=== PATIENT | female | born 1975 | race Caucasian/White ===

== ENCOUNTER 2016-06-16 12:26 | Emergency (ER) | payer MEDICAID, OTHER ==
[~2016-06-16] VITALS: Ht 157.5 cm; Wt 78.9 kg
[~2016-06-16 12:26] MED LIST: FER325 PO; FLUC150T17 PO; MICO1KIT VG; PROG200C6 PO
[2016-06-16 12:35] VITALS: Ht 157.5 cm; Wt 78.9 kg
[2016-06-16] MEDS ORDERED: KETOROLAC 30 MG INJ IV STA (13:47)
[2016-06-16 14:05] LABS: ADD UMIC YES; URINE BILIRUBIN (Dip) NEGATIVE (NEGATIVE); URINE BLOOD (Dip) 1+ (NEGATIVE); URINE COLOR LT. YELLOW (YELLOW); URINE GLUCOSE (Dip) >=1000 % (NEGATIVE); URINE KETONES (Dip) NEGATIVE (NEGATIVE); URINE LEUKOCYTE ESTERASE (Dip) NEGATIVE (NEGATIVE); URINE NITRITE (Dip) NEGATIVE (NEGATIVE); URINE TOTAL PROTEIN (Dip) NEGATIVE (NEGATIVE); URINE UROBILINOGEN (Dip) 0.2 E.U./dL (0.1-1.0)
[2016-06-16 14:16] LABS: ADD SCAN DIFF NO
[2016-06-16 14:19] LABS: ABNORMAL IP MESSAGE 1; BASOPHILS % 0.3 % (0.0-2.0); HEMATOCRIT 41.8 % (37.0-47.0); HEMOGLOBIN 14.3 g/dl (12.0-16.0); LYMPHOCYTES # 0.7 10^3/ul (0.8-2.9); LYMPHOCYTES % 19.9 % (15.0-51.0); MEAN CORPUSCULAR HGB CONC 34.2 g/dl (32.0-37.0); MEAN CORPUSCULAR VOLUME 73.2 fl (82.0-101.0); MONOCYTE # 0.2 10^3/ul (0.3-0.9); MONOCYTES % 6.5 % (0.0-11.0); NEUTROPHIL # 2.5 10^3/ul (1.6-7.5); NEUTROPHILS % 72.7 % (39.0-77.0); RED BLOOD COUNT 5.71 10^6/ul (4.20-5.40); RED CELL DISTRIBUTION WIDTH 12.9 % (11.5-14.5); WHITE BLOOD COUNT 3.4 10^3/ul (4.8-10.8)
[2016-06-16 14:25] LABS: PLATELET COUNT 80 10^3/UL (140-415)
[2016-06-16 14:26] LABS: MEAN PLATELET VOLUME 11.2 fl (7.4-10.4)
[2016-06-16 14:32] LABS: BACTERIA,URINE MODERATE; SQUAMOUS EPITHELIAL CELL,UR MODERATE
[2016-06-16 14:33] LABS: ALBUMIN 3.7 g/dl (3.3-4.9)
[2016-06-16 14:34] LABS: POTASSIUM 3.9 mmol/L (3.5-5.1)
[2016-06-16 14:36] LABS: BILIRUBIN,INDIRECT 0.3 mg/dl (0-1.1); BILIRUBIN,TOTAL 0.3 mg/dl (0.2-1.3); CREATININE 0.4 mg/dl (0.44-1.00)
[2016-06-16 14:37] LABS: ALBUMIN/GLOBULIN RATIO 1.08; CALCIUM 9.1 mg/dl (8.4-10.2); TOTAL PROTEIN 7.1 g/dl (6.1-8.1)
--- NOTE | 2016-06-16 14:44 | RADRPT ---
PROCEDURE: US Abdomen. CLINICAL INDICATION: Abdominal Pain TECHNIQUE: Multiple real-time images were acquired of the patient's abdomen utilizing a high resol ution transducer. COMPARISON: None FINDINGS: The liver demonstrates increased echogenicity. The liver is increased in size. The liver measures 22 .8 cm in length. There are no focal solid lesions seen. There is no intrahepatic biliary duct dilata tion. The portal vein is patent with normal direction of flow. No gallstones are identified within the gallbladder. There is a 5 mm gallbladder polyp. There is no pericholecystic fluid or gallbladder wall thickening. The common bile duct measures 3.6 mm in maximal dimension. The visualized portions of the pancreas are unremarkable. Right kidney is unremarkable measures 13.1 cm. No free fluid is identified. RPTAT: AA IMPRESSION: Mild fatty infiltration of the liver with mild hepatomegaly. No evidence of cholelithiasis or biliary ductal dilatation. 5 mm gallbladder polyp. .Magaly Ortiz MD, Date Time Electronically viewed and signed by .Magaly Ortiz MD, on 06/16/2016 14:44 .M/
--- NOTE | 2016-06-16 15:15 | RADRPT ---
PROCEDURE: US Pelvis CLINICAL INDICATION: Abdominal pain TECHNIQUE: Transabdominal and transvaginal sonographic evaluation of the pelvis was performed. COMPARISON: None. FINDINGS: Status post hysterectomy. The right ovary is not visualized. Normal flow to left ovary. No adnexal mass. Mild to moderate amount of free pelvic fluid is demonstrated. MEASUREMENTS: Left ovary size: 3.0 x 1.9 x 2.6 cm IMPRESSION: Status post hysterectomy. Right ovary not seen. Mild to moderate amount of pelvic ascites seen. RPTAT:PP .Lopez Yarbrough MD, MD Date Time Electronically viewed and signed by .Lopez Yarbrough MD, on 06/16/2016 15:14 .V/
[2016-06-16] MEDS ORDERED: IBUP-1542 PO (15:23)
[2016-06-16] MEDS ORDERED: ONDA4TAB14 PO (15:49)
[2016-06-16 16:00] VITALS: BP 132/82; PULSE 83; RESP 18; TEMP 97.9
--- NOTE | 2016-06-16 16:28 | ERD ---
ER Documentation Chief Complaint Date/Time DATE: 06/16/16 TIME: 16:16 Chief Complaint PELVIC PAIN X 2 DAYS HPI 40-year-old female complaining of fever, body aches, and pelvic pain 2 days. Patient also reports headache and neck pain. T-max at home 101. She took ibuprofen, last dose was 8 hours ago. Patient reports nausea, but denies vomiting or diarrhea. Denies cough or runny nose. Denies dysuria. Patient denies any past medical history, surgical history includes hysterectomy and bilateral breast implants. ROS All systems reviewed and are negative except as per history of present illness. Medications Home Meds Active Scripts Ondansetron (Ondansetron Odt) 4 Mg Tab.rapdis, 4 MG PO Q6H Y for NAUSEA AND/OR VOMITING, #10 TAB Prov:JULITO CHAPMAN FREIGHT ADJUSTER 06/16/16 Ibuprofen* (Motrin*) 600 Mg Tab, 600 MG PO Q6H Y for PAIN AND OR ELEVATED TEMP, #30 TAB Prov:JULITO CHAPMAN FREIGHT ADJUSTER 06/16/16 Miconazole/Skin Cleanser No.17 (Monistat 3 Combo Pack) 1 Each Kit, 1 EACH VG QHS for 3 Days, KIT Prov:TELMA HOROWITZ C 11/02/14 Fluconazole* (Diflucan*) 150 Mg Tablet, 150 MG PO ONCE, #1 TAB Prov:TELMA HOROWITZ C 11/02/14 Progesterone,Micronized* (Progesterone*) 200 Mg Capsule, 400 MG PO HS, #30 CAP Prov:ALONDRA DONG MD 03/17/14 Ferrous Sulfate* (Ferrous Sulfate*) 325 Mg Tabec, 325 MG PO TID, #90 TAB 3 Refills Prov:ALONDRA DONG MD 03/17/14 Allergies Allergies: Coded Allergies: No Known Allergies (Verified Allergy, Unknown, 06/03/14) PMhx/Soc History of Surgery: No Anesthesia Reaction: No Hx Neurological Disorder: No Hx Respiratory Disorders: No Hx Cardiac Disorders: No Hx Psychiatric Problems: No Hx Miscellaneous Medical Probl: No Hx Alcohol Use: No Hx Substance Use: No Hx Tobacco Use: No Smoking Status: Never smoker Physical Exam Vitals Vital Signs Date Time Temp Pulse Resp B/P Pulse Ox O2 Delivery O2 Flow Rate FiO2 06/16/16 16:00 97.9 83 18 132/82 98 Room Air 06/16/16 12:35 98.1 99 18 136/89 99 Physical Exam General: Well-developed, well-nourished, conscious and coherent, in no distress Skin: Warm and dry without rash, good texture and turgor Head: Normocephalic without evidence of trauma Eyes: Sclera and conjunctivae normal, nonicteric; pupils equal, round, and reactive to light; extraocular movements are intact Neck: Supple without meningismus or adenopathy. Carotids are equal. Trachea midline. No bruits or JVD Chest: Normal AP diameter. Good expansion without retractions. Nontender. Lungs are clear to auscultate bilaterally with good tidal volume Heart: Regular rate and rhythm. No murmur, rub, or gallops heard Abdomen: Soft, right upper quadrant tenderness is noted without guarding or rebound. Bowel sounds are active. No hepatosplenomegaly Back: Without spinal or CVA tenderness Pelvis: Mild suprapubic tenderness Extremities: Full range of motion. Good strength bilaterally. No clubbing, cyanosis, or edema. Peripheral pulses are intact. Sensation intact Neuro: Alert and oriented 4, GCS 15. Cranial nerves II-XII intact. Motor and sensory exams nonfocal. Moves all extremities. Speech clear. Gait normal Result Diagram: 06/16/16 1405 06/16/16 1405 Results 24 hrs Laboratory Tests Test 06/16/16 13:48 06/16/16 14:05 Urine Color LT. YELLOW Urine Clarity CLEAR Urine pH 6.5 Urine Specific [place] <=1.005 Urine Ketones NEGATIVE Urine Nitrite NEGATIVE Urine Bilirubin NEGATIVE Urine Urobilinogen 0.2 E.U./dL Urine Leukocyte Esterase NEGATIVE Urine Microscopic RBC 2-5/HPF Urine Microscopic WBC 2-5/HPF Urine Squamous Epithelial Cells MODERATE Urine Bacteria MODERATE Urine Hemoglobin 1+ Urine Glucose >=1000% Urine Total Protein NEGATIVE White Blood Count 3.410^3/ul Red Blood Count 5.7110^6/ul Hemoglobin 14.3g/dl Hematocrit 41.8% Mean Corpuscular Volume 73.2fl Mean Corpuscular Hemoglobin 25.0pg Mean Corpuscular Hemoglobin Concent 34.2g/dl Red Cell Distribution Width 12.9% Platelet Count 8010^3/UL Mean Platelet Volume 11.2fl Neutrophils % 72.7% Lymphocytes % 19.9% Monocytes % 6.5% Eosinophils % 0.0% Basophils % 0.3% Nucleated Red Blood Cells % 0.0/100WBC Neutrophils # 2.510^3/ul Lymphocytes # 0.710^3/ul Monocytes # 0.210^3/ul Eosinophils # 0.010^3/ul Basophils # 0.010^3/ul Nucleated Red Blood Cells # 0.010^3/ul Sodium Level 135mmol/L Potassium Level 3.9mmol/L Chloride Level 95mmol/L Carbon Dioxide Level 27mmol/L Anion Gap 17 Blood Urea Nitrogen 6mg/dl Creatinine 0.40mg/dl Glucose Level 248mg/dl Calcium Level 9.1mg/dl Total Bilirubin 0.3mg/dl Direct Bilirubin 0.00mg/dl Indirect Bilirubin 0.3mg/dl Aspartate Amino Transf (AST/SGOT) 153IU/L Alanine Aminotransferase (ALT/SGPT) 236IU/L Alkaline Phosphatase 150IU/L Total Protein 7.1g/dl Albumin 3.7g/dl Globulin 3.40g/dl Albumin/Globulin Ratio 1.08 Lipase 253U/L Current Medications Medications (Trade) Dose Ordered Sig/Suzy Route PRN Reason Start Time Stop Time Status Last Admin Dose Admin Ketorolac Tromethamine (Toradol) 30 mg ONCE STAT IV 06/16/16 13:47 06/16/16 13:49 DC 06/16/16 14:13 PROCEDURE: US Abdomen. CLINICAL INDICATION: Abdominal Pain TECHNIQUE: Multiple real-time images were acquired of the patient's abdomen utilizing a high resolution transducer. COMPARISON: None FINDINGS: The liver demonstrates increased echogenicity. The liver is increased in size. The liver measures 22.8 cm in length. There are no focal solid lesions seen. There is no intrahepatic biliary duct dilatation. The portal vein is patent with normal direction of flow. No gallstones are identified within the gallbladder. There is a 5 mm gallbladder polyp. There is no pericholecystic fluid or gallbladder wall thickening. The common bile duct measures 3.6 mm in maximal dimension. The visualized portions of the pancreas are unremarkable. Right kidney is unremarkable measures 13.1 cm. No free fluid is identified. RPTAT: AA IMPRESSION: Mild fatty infiltration of the liver with mild hepatomegaly. No evidence of cholelithiasis or biliary ductal dilatation. 5 mm gallbladder polyp. .Magaly Ortiz MD, MD Date Time Electronically viewed and signed by .Magaly Ortiz MD, MD on 06/16/2016 14:44 .M/ CC: JULITO CHAPMAN FREIGHT ADJUSTER PROCEDURE: US Pelvis CLINICAL INDICATION: Abdominal pain TECHNIQUE: Transabdominal and transvaginal sonographic evaluation of the pelvis was performed. COMPARISON: None. FINDINGS: Status post hysterectomy. The right ovary is not visualized. Normal flow to left ovary. No adnexal mass. Mild to moderate amount of free pelvic fluid is demonstrated. MEASUREMENTS: Left ovary size: 3.0 x 1.9 x 2.6 cm IMPRESSION: Status post hysterectomy. Right ovary not seen. Mild to moderate amount of pelvic ascites seen. RPTAT:PP .Lopez Yarbrough MD, MD Date Time Electronically viewed and signed by .Lopez Yarbrough MD, MD on 06/16/2016 15:14 .V/ CC: JULITO CHAPMAN FREIGHT ADJUSTER Procedures/MDM 40-year-old female presents the ED with fever and abdominal pain 2 days. CBC: WBC and platelet counts are both low at 3.4 and 80, respectively. No evidence of anemia. CMP: Moderately elevated AST and ALT at 153 and 236, respectively. Blood glucose 248. Lipase: no e/o pancreatitis Urine: no e/o acute infection, 1+ hemoglobin, urine glucose greater than 1000 Patient has right upper quadrant tenderness and pelvic tenderness on exam. Ultrasound of gallbladder and pelvis was obtained. Gallbladder ultrasound showed mild fatty infiltration of the liver with mild hepatomegaly. No evidence of cholelithiasis or biliary ductal dilatation. 5 mm gallbladder polyp. Pelvic ultrasound did not see the visualized the right ovary, status post hysterectomy, mild pelvic ascites. Patient symptoms are consistent with a viral illness. In light of her elevated liver functions and mild hepatomegaly, I suspect that she may have acute viral hepatitis. Patient advised to increase fluid intake and rest. She is also advised to follow-up with her PCP for further management. Patient appears well , stable for discharge and outpatient management. Medical decision making shared with patient and family. Education provided to patient and family. Patient and family expressed understanding of the plan. Medications on discharge: Ibuprofen. Follow-up: Primary care provider in 2-3 days or return to ED if worse. The case was reviewed and discussed with Dr. Beltran, who agrees with the plan of care including labs, treatment, and advanced imaging as appropriate. Departure Diagnosis: Primary Impression: Viral illness Additional Impression: Abdominal pain Condition: Stable Patient Instructions: Abdominal Pain, What Is Type 2 Diabetes?, Viral Syndrome (Adult) [facility] Usted se foster hecho un examen mdico de control que le indica que no est en nikolay condicin que requiera tratamiento urgente en el Departamento de Emergencia. Un estudio ms profundo y el tratamiento de garcia condicin pueden esperar sin ningn riesgo hasta que usted sea atendida/o en el consultorio de garcia mdico o nikolay cl valerie. Es responsabilidad suya arreglar nikolay chelsey para el seguimiento del clair. MANEJO DE CONDICIONES NO URGENTES EN EL FUTURO 1) Si usted tiene un mdico de atencin primaria: Usted debera llamar a garcia mdico de atencin primaria antes de venir al departamento de emergencia. Despus de las horas de consultorio, garcia doctor o garcia asociado/a est disponible por telfono. El mdico o enfermero de ani en el servicio telefnico puede asesorarle por lovely medio para atender el problema, o clair contrario se puede programar nikolay chelsey. 2) Si usted no tiene un mdico de atencin primaria: Llame al mdico o clnica de referencia que aparece abajo joey las horas de consultorio para hacer nikolay chelsey para que le vean. CLINICAS: [facility] [phone] [facility] [phone] [facility] [phone] [place] [address] [phone] [place] [phone] [place] [id number] [phone] Additional Instructions: Llame al doctor MAANA y murali nikolay CHELSEY PARA DENTRO DE 2-3 PRAKASH.Dgale a la secretaria que nosotros le instruimos hacer esta chelsey.Avise o llame si garcia condicin se empeora antes de la chelsey. Regresa aqui si peor o no mejor. JULITO CHAPMAN NP June 16, 2016 16:26
== END 2016-06-16 16:00 | disposition home or self-care (01) ==
LOC: FTE 12:26
DX: B34.9 Viral infection, unspecified (principal); R10.11 Right upper quadrant pain; R11.0 Nausea
CPT/HCPCS: 36415; 76705; 76830; 76856; 80053; 81001; 83690; 85025; 96374; J1885; Z7502; 81003

== ENCOUNTER 2016-08-21 15:50 | Emergency (ER) | END 2016-08-21 17:13 | disposition home or self-care (01) | DX: L29.0 Pruritus ani (principal); Z79.84 Long term (current) use of oral hypoglycemic drugs ==

== ENCOUNTER 2016-09-11 21:21 | Emergency (ER) | payer OTHER ==
[~2016-09-11] VITALS: Ht 160 cm; Wt 85.0 kg
[~2016-09-11 21:21] MED LIST changes: +HC30CR25 RECTAL; +IBUP-1542 PO; +METF500T4 PO; +NAPR-260 PO; +ONDA4TAB14 PO
[2016-09-11 21:34] VITALS: Ht 160 cm; Wt 85.0 kg
[2016-09-11] MEDS ORDERED: ONDANSETRON (ODT) 4 MG TAB ODT STA (21:55)
--- NOTE | 2016-09-11 22:18 | ERD ---
ER Documentation Chief Complaint Date/Time DATE: 09/11/16 TIME: 22:16 Chief Complaint HEADACHE, NAUSEA, VAGINAL ITCHING X 2 DAYS HPI 40-year-old female presents here in emergency department for complaints of headache and nausea vomiting that started 2 days ago. Patient described the headache as throbbing pain, 6/10 scale, accompanied with vomiting. Patient denies any head injury. Patient denies any dizziness, changes in balance or memory, fever or chills. Patient denies any blurry vision. Patient also has been complaining of perineal itching for the last 2 days, feels bombs in the very near area and some irritation. Patient denies any vaginal discharge. ROS All systems reviewed and are negative except as per history of present illness. Medications Home Meds Active Scripts Naproxen* (Naprosyn*) 500 Mg Tablet, 500 MG PO BID Y for PAIN AND/OR INFLAMMATION, #30 TAB Prov:TELMA HOROWITZ 08/21/16 Metformin* (Glucophage*) 500 Mg Tab, 500 MG PO BID, #60 TAB Prov:TELMA HOROWITZ 08/21/16 Hydrocortisone* Topical (Hydrocortisone* Topical) 2.5%-28.3 Gm Cream..g., 1 APPLIC RECTAL BID, #1 TUB Prov:TELMA HOROWITZ 08/21/16 Ondansetron (Ondansetron Odt) 4 Mg Tab.rapdis, 4 MG PO Q6H Y for NAUSEA AND/OR VOMITING, #10 TAB Prov:JULITO CHAPMAN. SQUEEGEE TENDER 06/16/16 Ibuprofen* (Motrin*) 600 Mg Tab, 600 MG PO Q6H Y for PAIN AND OR ELEVATED TEMP, #30 TAB Prov:JULITO CHAPMAN. SQUEEGEE TENDER 17 Miconazole/Skin Cleanser No.17 (Monistat 3 Combo Pack) 1 Each Kit, 1 EACH VG QHS for 3 Days, KIT Prov:TELMA HOROWITZ 11/02/14 Fluconazole* (Diflucan*) 150 Mg Tablet, 150 MG PO ONCE, #1 TAB Prov:TELMA HOROWITZ 11/02/14 Progesterone,Micronized* (Progesterone*) 200 Mg Capsule, 400 MG PO HS, #30 CAP Prov:ALONDRA DONG MD 03/17/14 Ferrous Sulfate* (Ferrous Sulfate*) 325 Mg Tabec, 325 MG PO TID, #90 TAB 3 Refills Prov:ALONDRA DONG MD 03/17/14 Allergies Allergies: Coded Allergies: No Known Allergies (Verified Allergy, Unknown, 08/21/16) PMhx/Soc Medical and Surgical Hx: pt denies Medical Hx, pt denies Surgical Hx History of Surgery: No Anesthesia Reaction: No Hx Neurological Disorder: No Hx Respiratory Disorders: No Hx Cardiac Disorders: No Hx Psychiatric Problems: No Hx Miscellaneous Medical Probl: No Hx Alcohol Use: No Hx Substance Use: No Hx Tobacco Use: No Smoking Status: Never smoker FmHx Family History: No coronary disease, No diabetes, No other Physical Exam Vitals Vital Signs Date Time Temp Pulse Resp B/P Pulse Ox O2 Delivery O2 Flow Rate FiO2 09/11/16 21:34 98.4 89 18 125/84 98 Physical Exam GENERAL: The patient is well developed and appropriate for usual state of health, in no apparent distress. CHEST: Clear to auscultation bilaterally. There are no rales, wheezes or rhonchi. HEART: Regular rate and rhythm. No murmurs, clicks, rubs or gallops. No S3 or S4. ABDOMEN: Soft, nontender and nondistended. Good bowel sounds. No rebound or guarding. No gross peritonitis. No gross organomegaly or masses. No Lundberg sign or McBurney point tenderness. BACK: No midline or flank tenderness. EXTREMITIES: Equal pulses bilaterally. There is no peripheral clubbing, cyanosis or edema. No focal swelling or erythema. Full range of motion. Grossly neurovascularly intact. NEURO: Alert and oriented. Cranial nerves 2-12 intact. Motor strength in all 4 extremities with 5/5 strength. Sensation grossly intact. Normal speech and gait. SKIN: There is no apparent rash or petechia. The skin is warm and dry. HEMATOLOGIC AND LYMPHATIC: There is no evidence of excessive bruising or lymphedema. No gross cervical, axillary, or inguinal lymphadenopathy. Results 24 hrs Current Medications Medications (Trade) Dose Ordered Sig/Suzy Route PRN Reason Start Time Stop Time Status Last Admin Dose Admin Ondansetron HCl (Zofran Odt) 4 mg ONCE STAT ODT 09/11/16 21:55 09/11/16 21:56 DC 09/11/16 22:25 Patient was given Zofran here in the emergency department. After treatment, patient was able to tolerate po fluids here in the emergency department without any vomiting. There is no signs and symptoms of dehydration. PROCEDURE: CT Head without. CLINICAL INDICATION: Headache, vomiting. TECHNIQUE: The study was performed utilizing a multi-slice, multidetector CT scanner. Direct spiral 1 mm axial sections were obtained through the head without the use of intravenous contrast material. 1 or more of the following dose reduction techniques were utilized: Automated exposure control, adjustment of the mA and/or kV according to patient's size, iterative reconstruction technique. Coronal and sagittal reformations were obtained. The images were reviewed on a PACS workstation. RADIATION DOSE: CTDIvol: 43.9 mGy DLP: 720.2 mGy-cm COMPARISON: No prior studies are available for comparison. FINDINGS: There is no intracranial hemorrhage, extra-axial fluid collection, mass lesion, midline shift or hydrocephalus. The ventricles, sulci and cisterns are within normal limits. The white matter is unremarkable. The rodriges-white matter differentiation is preserved. The basal cisterns are patent. The midline structures are intact. The orbits, calvarium and extracranial soft tissues are normal in appearance. The visualized paranasal sinuses, mastoid air cells and middle ear cavities are normally aerated. IMPRESSION: 1. No acute intracranial abnormality. No intracranial hemorrhage, extra-axial fluid collection, mass lesion or hydrocephalous. RPTAT: HGAS .Arnoldo Lundberg MD, MD Date Time Electronically viewed and signed by .Arnoldo Lundberg MD, on 09/11/2016 22: 25 .S/ CC: ANNY PARMAR SQUEEGEE TENDER Procedures/MDM Medical Decision Making: Patient symptoms are consistent with migraine headache , possible tension headache. There is low suspicion for neurological emergencies at this time since patients neurologic exam is normal. Patient did not have any altered level consciousness, vomiting, changes in balance or memory and did not have any head injury. Patients CT scan of the head does not show any neurological emergencies at this time. Patient's itching in the perineal area consistent with fungal infection. Rx: Fioricet with codeine, Zofran and clotrimazole 1% cream Dispostion: Home. Stable Departure Diagnosis: Primary Impression: Headache Headache type: unspecified Headache chronicity pattern: acute headache Intractability: not intractable Qualified Code: R51 - Acute nonintractable headache, unspecified headache type Additional Impression: Candidal skin infection Condition: Stable Patient Instructions: Christi Skin Infection (Adult), Self-Care for Headaches ANNY PARMAR NP Sep 11, 2016 22:18
--- NOTE | 2016-09-11 22:25 | RADRPT ---
PROCEDURE: CT Head without. CLINICAL INDICATION: Headache, vomiting. TECHNIQUE: The study was performed utilizing a multi-slice, multidetector CT scanner. Direct spira l 1 mm axial sections were obtained through the head without the use of intravenous contrast materia l. 1 or more of the following dose reduction techniques were utilized: Automated exposure control, adjustment of the mA and/or kV according to patient's size, iterative reconstruction technique. Co juanito and sagittal reformations were obtained. The images were reviewed on a PACS workstation. RADIATION DOSE: CTDIvol: 43.9 mGyDLP: 720.2 mGy-cm COMPARISON: No prior studies are available for comparison. FINDINGS: There is no intracranial hemorrhage, extra-axial fluid collection, mass lesion, midline shift or hyd rocephalus. The ventricles, sulci and cisterns are within normal limits. The white matter is unrem arkable. The rodriges-white matter differentiation is preserved. The basal cisterns are patent. The m idline structures are intact. The orbits, calvarium and extracranial soft tissues are normal in rosi earance. The visualized paranasal sinuses, mastoid air cells and middle ear cavities are normally ae rated. IMPRESSION: 1. No acute intracranial abnormality. No intracranial hemorrhage, extra-axial fluid collection, ma ss lesion or hydrocephalous. RPTAT: HGAS .Arnoldo Lundberg MD, MD Date Time Electronically viewed and signed by .Arnoldo Lundberg MD, MD on 09/11/2016 22:25 .S/
[2016-09-11] MEDS ORDERED: CLOT30CR24 TOP (22:35)
[2016-09-11] MEDS ORDERED: ONDA4TAB14 PO (22:35)
[2016-09-11] MEDS ORDERED: BUTA1CAP39 PO (22:35)
== END 2016-09-11 22:47 | disposition home or self-care (01) ==
LOC: FTE 21:21
DX: R51 Headache (principal); B37.2 Candidiasis of skin and nail; R11.2 Nausea with vomiting, unspecified; Z79.84 Long term (current) use of oral hypoglycemic drugs
CPT/HCPCS: 70450; Z7502; Z7610

== ENCOUNTER 2017-10-18 12:44 | Emergency (ER) | END 2017-10-18 14:26 | disposition home or self-care (01) ==